=== PATIENT | male | born 1950 | race Hispanic/Latino ===

== ENCOUNTER 2018-06-06 10:47 | Emergency (ER) | payer MEDICARE ==
[2018-06-06 11:04] VITALS: BMI 33.9
[2018-06-06 11:07] VITALS: O2SAT 96
[2018-06-06] MEDS ORDERED: Lidocaine 1% w Epi 1:100,000 Inj INJ ONE (11:34)
--- NOTE | 2018-06-06 11:50 | C.PDOC ---
History Of Present Illness 68 year old male brought to the ED via EMS complaining that he accidentally hit his head just prior to arrival. 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 Denies LOC. Otherwise patient denies any nausea, vomiting, visual changes, slurred speech, numbness, extremity weakness, dizziness, or other injuries. Time Seen by Provider: 06/06/18 11:24 Chief Complaint (Nursing): Abnormal Skin Integrity History Per: Patient History/Exam Limitations: no limitations Onset/Duration Of Symptoms: Hrs Current Symptoms Are (Timing): Still Present Location Of Injury: Anterior: Head Past Medical History Reviewed: Historical Data, Nursing Documentation, Vital Signs Vital Signs: Last Vital Signs Temp 98.7 F 06/06/18 13:21 Pulse 68 06/06/18 13:21 Resp 20 06/06/18 13:21 BP 151/73 H 06/06/18 13:21 Pulse Ox 96 06/06/18 13:33 - Medical History PMH: Diabetes, Pneumonia Surgical History: Tonsillectomy Family History: States: No Known Family Hx - Social History Hx Alcohol Use: No Hx Substance Use: No - Immunization History Hx Tetanus Toxoid Vaccination: (UNKNOWN) Hx Influenza Vaccination: Yes Hx Pneumococcal Vaccination: (UNKNOWN) Review Of Systems Constitutional: Negative for: Fever Eyes: Negative for: Vision Change Cardiovascular: Negative for: Chest Pain Respiratory: Negative for: Shortness of Breath Gastrointestinal: Negative for: Nausea, Vomiting Musculoskeletal: Negative for: Neck Pain, Back Pain Skin: Positive for: Lesions (laceration to forehead) Neurological: Positive for: Headache. Negative for: Weakness, Numbness, Incoordination, Change in Speech, Altered Mental Status, Dizziness Physical Exam - Physical Exam Appears: Non-toxic, No Acute Distress Skin: Normal Color, Warm, Dry Head: Normacephalic, Swelling, Laceration (6 cm laceration to the forehead) Eye(s): bilateral: Normal Inspection, PERRL, EOMI Ear(s): Bilateral: Normal Nose: Normal Oral Mucosa: Moist Neck: Normal ROM, No Midline Cervical Tenderness, No Paracervical Tenderness, Supple Chest: Symmetrical Cardiovascular: Rhythm Regular Respiratory: Normal Breath Sounds, No Accessory Muscle Use, No Rales, No Rhonchi , No Wheezing Extremity: Bilateral: Atraumatic, Normal Color And Temperature, Normal ROM Neurological/Psych: Oriented x3, Normal Speech, Normal Cognition, Normal Cranial Nerves, Normal Motor, Normal Sensation Gait: Steady ED Course And Treatment O2 Sat by Pulse Oximetry: 96 (RA) Pulse Ox Interpretation: Normal - CT Scan/US CT Head w/o contrast Other Rad Studies (CT/US): Read By Radiologist, Radiology Report Reviewed CT/US Interpretation: FINDINGS: Streak artifact obscures evaluation of the skullbase. HEMORRHAGE: No intracranial hemorrhage. BRAIN: Diffuse atrophy with prominence of the ventricles and sulci noted. No mass effect or edema. Dense intracranial atherosclerosis. Small focus of encephalomalacia within the right temporal lobe. Pituitary gland appears prominent which may be the result of patient obliquity rather than adenoma. Scattered periventricular and subcortical white matter hypodensities, which are nonspecific, but often seen with chronic microvascular ischemic disease. Please note that MRI with diffusion imaging is more sensitive in the detection of acute ischemic event. VENTRICLES: No hydrocephalus. CALVARIUM: Unremarkable. PARANASAL SINUSES: Unremarkable as visualized. No significant inflammatory changes. MASTOID AIR CELLS: Unremarkable as visualized. No inflammatory changes. OTHER FINDINGS: Soft tissue swelling and evidence of subcutaneous emphysema involving the superior scalp soft tissues. IMPRESSION: Soft tissue swelling and evidence of subcutaneous emphysema involving the superior scalp soft tissues. No acute intracranial pathology identified. Generalized atrophy. Nonspecific white matter changes. Evidence of small region encephalomalacia in the right temporal lobe. Pituitary gland appears prominent which may be the result of patient obliquity rather than adenoma. Outpatient follow-up suggested if indicated. Progress Note: CT Head ordered. Patient given 650 mg Tylenol PO for pain control. Lidocaine 1% with epi ordered for laceration repair. Laceration repaired by without difficulty, tolerated well by patient. Counseled patient regarding CT results, copy of report provided. On reassessment, patient is resting comfortably, is tolerating PO, and pain has improved. Discussed wound care instructions with patient and family. Brother at bedside states patient is acting baseline. Reports patient has history of diabetes and mental health impairment. Patient has no focal deficits, photophobia, changes in speech, nausea, or vomiting. Patient was instructed to follow up with physician/clinic in 1-2 days. Case discussed with Dr Solorio, who evaluated pt at bedside and agreed upon plan and discharge. Laceration - Laceration Repair forehead Wound Length (In cm): 6 Description Of Wound: Irregular Wound Cleansed With: Betadine, Sterile Saline Anesthesia: Lidocaine 1%, With Epi Wound Examination: Irrigated With Saline, No FB With Wound Exploration, No Tendon Injury With Wound Exploration Wound Closure: Suture (x10) Suture Technique And Material Used: Prolene (5:0) Wound Complexity: Intermediate Disposition - Disposition Disposition: HOME/ ROUTINE Disposition Time: 13:07 Condition: STABLE Additional Instructions: Watch for signs of infection including redness, swelling and discharge. Watch for signs of concern for head injury including persistent vomiting, severe headache and change in mental status. Suture removal in 7 days. Follow up with your doctor in 1-2 days and show them your cat scan results. Prescriptions: Acetaminophen [Tylenol 325mg tab] 650 mg PO Q4 PRN #20 tab PRN Reason: Pain, Mild (1-3) Cephalexin [cephalexin] 500 mg PO BID #10 cap Instructions: Minor Head Injury (DC) Forms: 10X10 [employer] (Icelandic) - Clinical Impression Clinical Impression: Laceration of head - PA / PRINT INSPECTOR / Resident Statement MD/DO has reviewed & agrees with the documentation as recorded. - Scribe Statement The provider has reviewed the documentation as recorded by the Scribe (Jennifer Bravo) All medical record entries made by the Scribe were at my direction and personally dictated by me. I have reviewed the chart and agree that the record accurately reflects my personal performance of the history, physical exam, medical decision making, and the department course for this patient. I have also personally directed, reviewed, and agree with the discharge instructions and disposition.
--- NOTE | 2018-06-06 12:46 | CT ---
Date of service: 06/06/2018 PROCEDURE: CT HEAD WITHOUT CONTRAST. HISTORY: trauma COMPARISON: None available. TECHNIQUE: Axial computed tomography images were obtained through the head/brain without intravenous contrast. Radiation dose: Total exam DLP = 2013.95 mGy-cm. This CT exam was performed using one or more of the following dose reduction techniques: Automated exposure control, adjustment of the mA and/or kV according to patient size, and/or use of iterative reconstruction technique. FINDINGS: Streak artifact obscures evaluation of the skullbase. HEMORRHAGE: No intracranial hemorrhage. BRAIN: Diffuse atrophy with prominence of the ventricles and sulci noted. No mass effect or edema. Dense intracranial atherosclerosis. Small focus of encephalomalacia within the right temporal lobe. Pituitary gland appears prominent which may be the result of patient obliquity rather than adenoma. Scattered periventricular and subcortical white matter hypodensities, which are nonspecific, but often seen with chronic microvascular ischemic disease. Please note that MRI with diffusion imaging is more sensitive in the detection of acute ischemic event. VENTRICLES: No hydrocephalus. CALVARIUM: Unremarkable. PARANASAL SINUSES: Unremarkable as visualized. No significant inflammatory changes. MASTOID AIR CELLS: Unremarkable as visualized. No inflammatory changes. OTHER FINDINGS: Soft tissue swelling and evidence of subcutaneous emphysema involving the superior scalp soft tissues. IMPRESSION: Soft tissue swelling and evidence of subcutaneous emphysema involving the superior scalp soft tissues. No acute intracranial pathology identified. Generalized atrophy. Nonspecific white matter changes. Evidence of small region encephalomalacia in the right temporal lobe. Pituitary gland appears prominent which may be the result of patient obliquity rather than adenoma. Outpatient follow-up suggested if indicated.
[2018-06-06] MEDS ORDERED: Bacitracin 500 Units/gm Oint Foilpak UD ONE (13:02)
[2018-06-06 13:25] VITALS: BP 151/73; PULSE 68; RESP 20; TEMP 98.7
== END 2018-06-06 13:28 | disposition home or self-care (01) ==
LOC: C.ER 10:47
DX: S01.81XA Laceration without foreign body of other part of head, initial encounter (principal); W22.8XXA Striking against or struck by other objects, initial encounter; Y92.89 Other specified places as the place of occurrence of the external cause